=== PATIENT | male | born 1995 | race Caucasian/White ===

== ENCOUNTER 2020-06-04 09:07 | Emergency (ER) | payer OTHER ==
[~2020-06-04] VITALS: Ht 185.4 cm; Wt 90.7 kg
[2020-06-04] MEDS ORDERED: FLEXERIL PO (09:29)
[2020-06-04] MEDS ORDERED: IBUPROFEN 800800 M1 PO (09:29)
[2020-06-04] MEDS ORDERED: NORCO 5-325 TA1 EAC2 PO (09:29)
[2020-06-04 09:39] VITALS: BP 172/105
== END 2020-06-04 09:39 | disposition home or self-care (01) ==
LOC: M.ERS 09:07
DX: S39.012A Strain of muscle, fascia and tendon of lower back, initial encounter (principal); X50.0XXA Overexertion from strenuous movement or load, initial encounter; Y93.89 Activity, other specified; Y92.89 Other specified places as the place of occurrence of the external cause; Y99.0 Civilian activity done for income or pay